=== PATIENT | male | born 2005 | race Caucasian/White ===

== ENCOUNTER 2025-09-04 07:38 | Inpatient (IN) ==
--- NOTE | 2025-08-21 13:09 | Anesthesiology Consultation ---
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 Chart Review Chart Review: Acceptable Risk for Surgery and Patient NOT seen in Pre Admission Testing History Surgery Operation Date: 09/04/25 11:55 Proposed Procedures p L5-S1 Decompression and Fusion - Cr Pompa DO Height/Weight Height: 5 ft 9 in Weight: 71.668 kg Allergies Allergy/AdvReac Type Severity Reaction Status Date / Time No Known Drug Allergies Allergy Verified 08/21/25 11:47 Medications Home Medications Medication Instructions Recorded Confirmed Last Taken cholecalciferol (vitamin D3) 125 125 mcg PO QPM 08/21/25 08/21/25 Unknown mcg (5,000 unit) tablet (Vitamin D3) gabapentin 300 mg tablet 300 mg PO TID 08/21/25 08/21/25 Unknown Past Medical History Medical History (Updated 08/21/25 @ 13:06 by Conchita Kowalski PA-C) History of anesthesia reaction woke up during wisdom teeth removal Lumbar back pain with radiculopathy affecting left lower extremity Past Surgical History Surgical History History of wisdom tooth extraction Social History Smoking Status: Former smoker Do You Dip or Chew Tobacco: No Smoking End Date: 08/20/2025 Hx Alcohol Use: No Hx Substance Use: Yes substance use type: marijuana Last Used Substance: Days (ago) Last Used Substance Other:: 08/19/2025-advised Lab Results Anesthesia Preop Results Results Anesthesia Widget: WBC 4.23 K/ul (4.8-10.8) L 08/19/25 Hgb 15.3 g/dL (14.0-18.0) 08/19/25 Hct 42.9 % (42.0-52.0) 08/19/25 Plt 300 K/uL (130-400) 08/19/25 Na 138 mmol/L (136-145) 08/19/25 K 4.2 mmol/L (3.5-5.1) 08/19/25 Cl 102 mmol/L (98-107) 08/19/25 CO2 30 mmol/L (21-32) 08/19/25 BUN 14 mg/dl (6-23) 08/19/25 Creat 0.79 mg/dl (0.6-1.4) 08/19/25 Glucose Level 89 mg/dl (70-99(Fasting)) 08/19/25 PT 10.3 Seconds (9.0-12.0) 08/19/25 PTT 29 Seconds (21-31) 08/19/25 INR 1.0 (0.9-1.1) 08/19/25 Urine Color Yellow 08/19/25 Urine Appearance Clear (Clear) 08/19/25 Urine pH 5.5 (4.5-7.5) 08/19/25 Urine Specific [place] 1.016 (1.000-1.030) 08/19/25 Urine Protein Negative (Negative) 08/19/25 Urine Glucose (UA) Negative (Negative) 08/19/25 Urine Ketones Negative (Negative) 08/19/25 Urine Blood Negative (Negative) 08/19/25 Urine Nitrite Negative (Negative) 08/19/25 Urine Bilirubin Negative (Negative) 08/19/25 Urine Urobilinogen Negative (Negative) 08/19/25 Urine Leukocyte Esterase Negative (Negative) 08/19/25 Blood Type O Negative 08/19/25 Antibody Screen NEGATIVE 08/19/25 Testing Other Testing Abdomen pelvis CT 08/05/25 No significant acute traumatic injury involving the abdomen or pelvis.
[2025-09-04] MEDS: CeleBREX 200 MG CAP PO SCH (08:14)
[2025-09-04] MEDS: ACETAMINOPHEN 500 MG TAB PO SCH (08:14)
[2025-09-04] MEDS: LR 60ML/HR IV SCH (08:14)
[2025-09-04] MEDS: GABAPENTIN 900 MG DOSE PO SCH (08:15)
[2025-09-04] MEDS: LR 15ML/HR IV SCH (08:25)
[2025-09-04] MEDS ORDERED: HYDROmorphone INJ 1 MG/ML SYRINGE IV PRN ×2 (08:32→12:40)
[2025-09-04] MEDS ORDERED: PROMETHAZINE HCL 6.25 MG in SODIUM CHLORIDE 0.9% 50 ML IV PRN (08:32)
[2025-09-04] MEDS ORDERED: ONDANSETRON INJ 2 MG/ML 2 ML VIAL IV PRN (08:32)
[2025-09-04] MEDS ORDERED: ATROPINE SULFATE 0.1 MG/ML 10ML SYR IV PRN (08:32)
[2025-09-04] MEDS ORDERED: PROPOFOL IV EMULSION 10 MG/ML 20 ML VIAL IV ONE ×2 (08:36→09:49)
[2025-09-04] MEDS ORDERED: DEXAMETHASONE SOD INJ 4 MG/ML VIAL ONE (08:36)
[2025-09-04] MEDS ORDERED: LIDOCAINE 2% 2 ML VIAL/AMP(20MG/ML) INFIL ONE (08:36)
[2025-09-04] MEDS ORDERED: MIDAZOLAM HCL 1 MG/ML 2ML VIAL ONE (08:36)
[2025-09-04] MEDS ORDERED: ONDANSETRON INJ 2 MG/ML 2 ML VIAL ONE (08:36)
[2025-09-04] MEDS ORDERED: ROCURONIUM BROMIDE 10 MG/ML 5 ML VIAL IV ONE ×2 (08:36→09:55)
--- NOTE | 2025-09-04 09:06 | History & Physical Bridge Note ---
Date of Service September 04, 2025 History & Physical Bridge Note I have examined the patient, reviewed the History & Physical and in the interval since the performance of the History & Physical I have noted the following changes of clinical significance: no changes noted
--- NOTE | 2025-09-04 09:07 | History & Physical Report ---
Date of Service September 04, 2025 Assessment & Plan (1) Lumbar disc herniation with radiculopathy: Plan: Decompression fusion L5-S1 History of Present Illness Chief Complaint: Back and leg pain Primary Care Provider: Cr Hidalgo DO This is a 20-year-old male presents with chronic cyst back and leg pain after failing course of nonoperative care is here for surgical invention. Allergies Allergy/AdvReac Type Severity Reaction Status Date / Time No Known Drug Allergies Allergy Verified 09/04/25 07:53 Home Medications Medication Instructions Recorded Confirmed Type cholecalciferol (vitamin D3) 125 125 mcg PO QPM 08/21/25 09/04/25 History mcg (5,000 unit) tablet (Vitamin D3) gabapentin 300 mg tablet 300 mg PO TID 08/21/25 09/04/25 History Past Med/Surg History Problem List (Updated 09/04/25 @ 09:07 by Cr Pompa DO) Lumbar disc herniation with radiculopathy Encounter for pre-operative examination Medical History History of anesthesia reaction woke up during wisdom teeth removal Lumbar back pain with radiculopathy affecting left lower extremity Surgical History History of wisdom tooth extraction Social History Smoking Status: Former smoker Tobacco Type: E-cigarettes / Vaping Smoking End Date: 08/20/2025; Second Hand Exposure: No; Do You Dip or Chew Tobacco: No; Tobacco Cessation Education Requested by Patient: No Hx Alcohol Use: No Hx Substance Use: Yes Last Used Substance: Days (ago) Last Used Substance Other:: 08/19/2025-advised Preferred Language: [place] 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
[2025-09-04] MEDS ORDERED: KETAMINE HCL 10MG/ML SYR ONE (09:34)
[2025-09-04] MEDS: BUPIVACAINE/EPINEPHRINE 0.25% 1:200,000 30 ML VIAL ONE (10:08)
[2025-09-04] MEDS: ceFAZolin 330 MG/ML 1 GM VIAL ONE (10:08)
[2025-09-04] MEDS ORDERED: DexMEDEtomidine HCL IV 100 MCG/ML VIAL IV ONE (10:32)
[2025-09-04] MEDS ORDERED: SUGAMMADEX SODIUM 200 MG/2 ML VIAL IV ONE (11:01)
[2025-09-04] MEDS: FLOSEAL HEMOSTATIC MATRIX 10ML TOP ONE (11:12)
--- NOTE | 2025-09-04 11:12 | Operative Report ---
Post Operative Report Pre & Post Diagnosis Operation Date: 09/04/25 09:05 Pre-Op Diagnosis: (1) Lumbar disc herniation with radiculopathy: Post-Op Diagnosis: (1) Lumbar disc herniation with radiculopathy: I identified the patient and participated in the time-out.: Yes Procedure Operation Date: 09/04/25 09:05 Actual Procedures #1 lumbar decompression with bilateral facetectomies and foraminotomies excision of herniated fragments of disc material L5-S1. #2 posterior spinal fusion L5- S1. #3 placement posterior instrumentation of S1. #4 interbody fusion L5 7. #5 placement Spira 13 x 26 mm x 2 at L5-S1. #6 placement of Koros, with Proteus bone graft in the posterior gutters and os design and interbody space. #7 application of versa wrap of the exposed dura. Surgeon Cr Pompa, Manager Diesel Chasity Rome Estimated Blood Loss 10 Findings Consistent with Post-Op Diagnosis Specimens None Indications This is a 20-year-old male presents with above-mentioned diagnosis after failing course of nonoperative care is here for surgical intervention. Description of Procedure Patient is met with identified informed consent obtained. Patient was then taken to the operative suite underwent patient placed in prone position on Joe table on top of the Bernard frame. All bony prominences well-padded eyes inspected to ensure no external precipice spinal. This point the lumbar spine was prepped and draped in normal sterile fashion. Sharp dissection with the assistance of Bovie cautery performed down to and exposing the lamina transverse processes of L5 and the sacral ala bilaterally. From a caudal to cephalad fashion complete laminectomy of L5 was performed including bilateral medial facetectomies and foraminotomies to address all neural compression. Massive amounts of disc material had migrated to the dorsal aspect of the canal intertwined between the traversing nerve roots. These fragments were removed in their entirety. Pedicle screws were then placed at L5-S1 bilaterally with assistance of fluoroscopy. By way of transforaminal approach on the left dis cectomy of L5-S1 was performed endplates corrected to subcortical bleeding bone and a 13 x 26 mm Spira cage tapped into position. Then proceeded to the right transforaminal region at L5-S1. Again discectomy performed. Endplates guided to subcortically bone and a second 13 x 26 mm Spira cage tapped in position. Please note cages were packed with os design bone graft. The rods were then compressed locked into final position bilaterally. Transverse processes of L5 and sacral ala burred to subcortical bleeding bone. Proteus combined with Koros bone graft placed in posterior gutters. Versa wrap placed over the exposed dura. 15 round MAKAYLA drain inserted. The incision was then closed with 1 Vicryl the fascia 2-0 Vicryl subtenons layer and 4 Monocryl for final skin closure. Steri-Strips sterile dressing placed. Patient waken taken to PACU in stable condition. Please note Chasity Rome was present at the entire procedure and brought the patient positioning complex portion of the surgery and final skin closure. I attest to the content of the Intraoperative Record and any orders documented therein. Any exceptions are noted below.
--- NOTE | 2025-09-04 11:13 | Fluoroscopy Report ---
FL lumbar spine 2-3V CLINICAL HISTORY: L5-S1 DECOMPRESSION AND FUSION COMPARISON STUDY: None FINDINGS: 16 seconds of fluoroscopic time was utilized. 2 fluoroscopic spot images are provided for i nterpretation. 2 intraoperative views reveal postsurgical changes of an L5-S1 discectomies interbody fusion. L5 and S1 pedicle screws are visualized. IMPRESSION: Postsurgical changes of an L5-S1 spinal decompression and fusion ACT 112: Negative or not required by law. Electronically signed by: Kristofer Luu M.D. 09/04/2025 11:12 AM
[2025-09-04] MEDS ORDERED: METOCLOPRAMIDE HCL INJ 5 MG/ML 2 ML VIAL IV PRN (12:40)
[2025-09-04] MEDS ORDERED: NALOXONE HCL 0.4 MG/1 ML VIAL/CARP IV PRN (12:40)
[2025-09-04] MEDS ORDERED: LORazepam Inj 0.5 MG in SYRINGE 0.25 ML IV PRN (12:40)
[2025-09-04] MEDS ORDERED: MAGNESIUM HYDROXIDE SUSP 30 ML UDC PO PRN (12:40)
[2025-09-04] MEDS ORDERED: DO NOT ADMINISTER PNEUMOCOCCAL VACCINE PRN (12:40)
[2025-09-04] MEDS ORDERED: SOD PHOSPHATE/SOD BIPHOSPHATE ENEMA 132 ML BTL PR PRN (12:40)
[2025-09-04] MEDS ORDERED: FAMOTIDINE 20 MG TAB PO PRN (12:40)
[2025-09-04] MEDS ORDERED: PROMETHAZINE 12.5 MG/50.5 ML BAG IV PRN (12:40)
[2025-09-04] MEDS ORDERED: ACETAMINOPHEN 1,000 MG/100 ML VIAL IV PRN (12:40)
[2025-09-04] MEDS ORDERED: DO NOT ADMINISTER FLU VACCINE PRN (12:40)
[2025-09-04] MEDS ORDERED: diphenhydrAMINE Capsule 25 MG CAP PO PRN (12:40)
[2025-09-04] MEDS ORDERED: LORazepam 0.5 MG TAB PO PRN (12:40)
[2025-09-04] MEDS ORDERED: HYDROmorphone INJ 0.5 MG/0.5 ML SYR IV PRN (12:40)
[2025-09-04] MEDS ORDERED: ALUMINUM/MAGNESIUM SUSP 30 ML UDC PO PRN (12:40)
[2025-09-04] MEDS: LACTATED RINGER'S 1,000 ML IV SCH (12:52)
[2025-09-04] MEDS: GABAPENTIN 300 MG CAP PO SCH (13:57)
--- NOTE | 2025-09-04 14:41 | Anesthesiology Progress Note ---
Date of Service September 04, 2025 Anesthesia Post Procedure Vital Signs Vital Signs: Temp Pulse Pulse Resp BP Pulse Ox O2 Del Method 09/04/25 13:43 36.6 C 73 17 125/81 95 Room Air 09/04/25 13:11 36.4 C L 84 17 124/84 98 Room Air 09/04/25 12:40 36.7 C 88 18 116/76 98 Room Air 09/04/25 12:20 36.8 C 71 16 120/87 99 Nasal Cannula 09/04/25 12:05 36.5 C 88 14 131/96 98 Nasal Cannula 09/04/25 11:55 85 14 146/96 H 100 Room Air 09/04/25 11:45 77 16 134/94 100 Oxymask 09/04/25 11:35 89 12 154/95 H 100 Oxymask 09/04/25 11:27 36.0 C L 95 H 18 115/73 98 Oxymask 09/04/25 08:03 36.7 C 75 20 137/95 99 Room Air O2 Flow Rate 09/04/25 13:43 09/04/25 13:11 09/04/25 12:40 09/04/25 12:20 2 09/04/25 12:05 2 09/04/25 11:55 0 09/04/25 11:45 6 09/04/25 11:35 6 09/04/25 11:27 6 09/04/25 08:03 Pain Intensity Left Lower Back: Pain Intensity: 5 Transfer of Care Handoff Completed per policy Notes Mental Status: alert / awake / arousable and participated in evaluation Patient Amnestic to Procedure: Yes Nausea / Vomiting: adequately controlled Pain: adequately controlled Airway Patency, RR, SpO2: stable & adequate BP & HR: stable & adequate Hydration State: stable & adequate Anesthetic Complications: no major complications apparent and Pt Satisfied with anesthetic care
[2025-09-04] MEDS: CHOLECALCIFEROL 125 MCG (5,000 UNITS) TAB PO SCH (20:38)
[2025-09-04] MEDS: DOCUSATE SODIUM/SENNA 50/8.6MG TAB PO SCH (20:39)
[2025-09-04] MEDS: ONDANSETRON INJ 2 MG/ML 2 ML VIAL IV PRN (20:39)
[2025-09-05] MEDS: POLYETHYLENE (MIRALAX) 17 GM PACK PO SCH (06:02)
[2025-09-05 07:35] LABS: Hematocrit (blood only) 37.9 % (42.0-52.0); Hemoglobin 13.7 g/dL (14.0-18.0); Immature Granulocytes # (auto) 0.02 K/uL (0.01-0.20); Immature Granulocytes % (auto) 0.2 %; Mean Corpuscular Hemoglobin 30.4 pg (25.0-34.0); Mean Corpuscular Volume 84.2 fL (80.0-100.0); Platelet Count 220 K/uL (130-400); RDW Standard Deviation 36.5 fL (36.4-46.3); Red Blood Count 4.50 M/uL (4.70-6.10); White Blood Count 8.28 K/ul (4.8-10.8)
[2025-09-05 07:46] LABS: Anion Gap 8.0 (3-11); Blood Urea Nitrogen 10.0 mg/dl (6-23); Calcium 9.0 mg/dl (8.6-10.3); Carbon Dioxide 27.0 mmol/L (21-32); Chloride 101.0 mmol/L (98-107); Creatinine Clr Calc Pharmacy 128.7 ml/min; Glucose 152.0 mg/dl (70-99(Fasting)); Potassium 3.7 mmol/L (3.5-5.1); Sodium 136.0 mmol/L (136-145)
--- NOTE | 2025-09-05 08:39 | Orthopedic Progress Note ---
Date of Service September 05, 2025 Assessment & Plan (1) Lumbar disc herniation with radiculopathy: Plan: Today we will initiate physical therapy. Watch his MAKAYLA output. Hopefully discharge home tomorrow. Admission and Anticipated Discharge Date Admission Date: September 04, 2025 Subjective Back pain is controlled leg symptoms improved Physical Exam Physical Exam: Patient is comfortable. Distracted testing. Results & Data Vital Signs (Past 12 Hours) Vital Signs Temp Pulse Resp BP Pulse Ox O2 Del Method 09/05/25 08:07 36.4 C L 80 16 126/76 99 Room Air 09/05/25 03:04 36.6 C 85 16 125/58 L 97 Room Air 09/04/25 23:46 36.6 C 97 H 16 120/87 97 Room Air
[2025-09-05] MEDS: ACETAMINOPHEN 500 MG TAB PO PRN (09:15)
[2025-09-05] MEDS: dexAMETHasone 6 MG in SYRINGE 0 ML IV SCH (10:38)
[2025-09-05] MEDS: ONDANSETRON 4 MG OD TAB PO PRN (13:49)
--- NOTE | 2025-09-06 10:23 | Discharge Summary ---
Date of Service September 06, 2025 Admission HPI Per Admitting Provider This is a 20-year-old male presents with chronic cyst back and leg pain after failing course of nonoperative care is here for surgical invention. Principal Diagnosis Lumbar disc herniation with radiculopathy Discharge Data Allergies Allergy/AdvReac Type Severity Reaction Status Date / Time No Known Drug Allergies Allergy Verified 09/04/25 07:53 Procedures Performed Operation Date: 09/04/25 09:05 Actual Procedures p L5-S1 Decompression and Fusion(Not Applicable) - Cr Pompa DO Ordered Studies 09/04/25 09:05 [place] lumbar spine 2-3V Routine Hospital Course (1) Lumbar disc herniation with radiculopathy: Patient with lumbar decompression fusion trial as well as taken orthopedic for. Postop day #1 is up and ambulating visit postop pain #2. MAKAYLA drain decreasing. Extra strength testing. Pain well-controlled. Subcu discharge home. Discharge orders instructions on the chart for further review. Total Time Total Time Spent Total Time Spent (In Minutes): 20 minutes Discharge Plan Discharge Items Patient Disposition: Home - Self-Care Reason For Visit: Lumbar Disc Herniation with Radiculopathy, Retroli Discharge Diagnosis: Lumbar disc herniation with radiculopathy Activity: As commented below Non-emergency contact: Primary Care Provider Call non-emergency contact if: you have any medication questions Follow-up/Referrals: Cr Hidalgo DO [Primary Care Provider] - Diet: Regular Addtl Attending Provider Instructions: ACTIVITY RECOMMENDATIONS: SELF CARE INSTRUCTIONS AFTER THORACIC/LUMBAR FUSIONS 1. You may walk to your tolerance. It is good exercise for your legs and back. Expect some back and intermittent leg aches and pains. 2. You may perform "counter-top" level activities (make a sandwich, finn with a project, etc.). 3. No bending or lifting of more than 10 pounds or back twisting of any nature (roll like a log when turning in bed). 4. You may ride in a car for 20-30 minutes at a time. No driving until after your first visit with your doctor. 5. Frequent changes of position and restricting sitting to 30 minutes at a time will help limit the amount of back spasms and stiffness you may experience. 6. You may discontinue the use of ambulatory aids (cane, crutches, etc.) once your strength and confidence allow. 7. 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 Do not take a tub bath, sit in a hot tub or go into a swimming pool until after your first recheck in the office. 8. You may resume previous diet. SPECIAL CARE INSTRUCTIONS: VERY IMPORTANT TO READ AND REVIEW A. Your surgical incision has been closed with a cosmetic suture under the skin that will dissolve in about 6 weeks. In 14 days, you can use a pair of clean scissors and cut the suture that is left outside of the skin at the ends of your incision. 1. The small skin tapes can be removed 7 days after surgery if they have not fallen off by that point. 2. You may keep the wound open to air as much as possible to promote healing after post-op day number 5 unless told otherwise by your doctor. 3. If you think the wound looks like it is becoming infected (redness or worsening drainage) and/or you are experiencing fever, chill or worsening back pain and muscle spasms, contact the office so that we may evaluate you as soon as possible. B. Complications are uncommon, but please contact us if you have any signs or symptoms of: 1. wound infection (fever higher than 102.5 degrees F, redness, separation of wound, drainage, or increasing pain from the incision) 2. blood clots in legs (pain, swelling, redness and warmth in legs) 3. urinary tract infection (fever higher than 102.5 degrees F, burning upon urination or increased frequency of urination) 4. nerve problems (inability to walk on your toes or heels, numbness, loss of bowel or bladder control) 5. any other symptoms that concern you C. Please call the office at if you have any concerns or questions about your operation or recovery. D. No smoking! Smoking drastically decreases the chance of a solid fusion. E. Do not take any anti-inflammatory medications (Indocin, Advil, Motrin, Aspirin, Naprosyn, etc.) as these may inhibit the chance of a solid fusion. Tylenol is okay to take for pain. MANAGING PAIN AFTER SPINAL SURGERY 1. Narcotic medication is intended for short-term use and will be provided for surgical pain. Surgical pain usually lasts for a period of 4-6 weeks. Narcotic medication includes Percocet, Vicodin, Darvocet, Tylenol #3 or Lortab. 2. Longer-term pain is more appropriately treated with non-narcotic medication such as Tylenol ES. 3. Muscle spasm is not appropriately treated with narcotics. Muscle relaxers such as Soma, Flexeril or Skelaxin can be used along with Tylenol ES. 4. Remember that we all live with some "aches and pains". This is not unusual or uncommon after an injury or as we get older. a. Back pain is expected and may include muscle spasms for 4 to 6 weeks after surgery. The pain should gradually improve. If the pain worsens for no apparent reason, please contact the office. b. Intermittent leg pain may also be experienced and should not be concerned about unless it worsens for no apparent reason. If so, please contact the office. 5. We will provide appropriate medication within the normal guidelines of their prescribed use. We will also be very cautious and aware of potential abuse and extended duration of patients' medication needs. a. Pain medications are for your comfort and to assist with sleep and rest so that the tissue can heal. They are not provided in order to return to normal activity and should not be used through the day. To do so or worsening pain at night can result from ongoing tissue damage and development of tolerance to the prescribed medicine. 6. Please allow 2-3 days to process refills. Prescriptions will not be mailed but must be picked up at the office. FOLLOW UP VISIT: Keep your scheduled follow-up appointment. Any questions, please call the office at . Pending Studies at Discharge: No Stand-Alone Forms: My [facility] [employer], Smoking Cessation Medications and DC Order Prescriptions: New tramadol 50 mg tablet 50 mg PO Q6H PRN (Reason: pain, moderate) Qty: 30 0RF oxycodone 5 mg tablet 5 mg PO Q6H PRN (Reason: pain) Qty: 30 0RF Continued gabapentin 300 mg Tablet 300 mg PO TID cholecalciferol (vitamin D3) [Vitamin D3] 125 mcg (5,000 unit) Tablet 125 mcg PO QPM Discharge Orders: Discharge Order (Routine); Ordered 09/06/25 Ordered By: Cr Pompa Admission Data Admit Date/Time: 09/04/25 11:15 Attending Provider: Cr Pompa Admit Provider: Cr Pompa Primary Care Provider: Cr Hidalgo
== END 2025-09-06 11:22 | disposition home or self-care (01) | DRG 402 ==
LOC: ASU 07:38 → 3N 11:15